=== PATIENT | female | born 1975 | race Caucasian/White ===

== ENCOUNTER 2017-04-25 13:13 | Emergency (ER) | payer OTHER ==
[~2017-04-25] VITALS: Ht 160 cm; Wt 90.5 kg
[2017-04-25 13:15] VITALS: BP 129/98; PULSE 85; RESP 14; TEMP 99.3; O2SAT 100
[2017-04-25] MEDS ORDERED: AMBI10TA PO (13:40)
[2017-04-25] MEDS ORDERED: MORP1TAB25 PO (13:40)
[2017-04-25] MEDS ORDERED: GABA400C5 PO (13:40)
[2017-04-25] MEDS ORDERED: PERC10TA27 PO (13:40)
[2017-04-25] MEDS ORDERED: METH500T3 PO (13:40)
[2017-04-25] MEDS ORDERED: CARI1CAP5 PO (13:40)
[2017-04-25] MEDS ORDERED: BUSP15TA PO (13:41)
[2017-04-25 14:20] LABS: AUTOMATED NEUTROPHIL # 3.7 TH/MM3 (1.8-7.7); BASOPHIL # 0.1 TH/MM3 (0-0.2); BASOPHIL % 1.1 % (0.0-2.0); EOSINOPHIL % 0.3 % (0.0-4.0); LYMPH % 20.1 % (9.0-44.0); MEAN CELL VOLUME 87.5 FL (80.0-100.0); MEAN CORPUSCULAR HEMOGLOBIN 29.3 PG (27.0-34.0); MEAN CORPUSCULAR HGB CONC 33.4 % (32.0-36.0); MEAN PLATELET VOLUME 9.2 FL (7.0-11.0); MONO % 5.8 % (0.0-8.0); MONOCYTE # 0.3 TH/MM3 (0-0.9); NEUT % 72.7 % (16.0-70.0); PLATELET COUNT 230 TH/MM3 (150-450); RED BLOOD COUNT 4.45 MIL/MM3 (4.00-5.30); WHITE BLOOD COUNT 5.1 TH/MM3 (4.0-11.0)
[2017-04-25 14:59] LABS: ALKALINE PHOSPHATASE 53 U/L (45-117); TOTAL BILIRUBIN ADULT 0.4 MG/DL (0.2-1.0); TOTAL PROTEIN 8.5 GM/DL (6.4-8.2)
[2017-04-25 15:00] LABS: ALT (GPT) 22 U/L (10-53); AST (GOT) 18 U/L (15-37); BICARBONATE 21.6 MEQ/L (21.0-32.0); BLOOD UREA NITROGEN 9 MG/DL (7-18); CALCIUM 8.8 MG/DL (8.5-10.1); CHLORIDE 107 MEQ/L (98-107); CREATININE 0.87 MG/DL (0.50-1.00); GLOMERULAR FILTRATION RATE 71 ML/MIN (>89); GLUCOSE,RANDOM 86 MG/DL (74-106); SODIUM (NA) 135 MEQ/L (136-145)
[2017-04-25] MEDS ORDERED: ONDANSETRON ODT 4 MG TAB PO ONE (15:00)
[2017-04-25] MEDS ORDERED: DICYCLOMINE HCL 20 MG/2 ML VIAL IM ONE (15:00)
--- NOTE | 2017-04-25 16:11 | PD ---
HPI Chief Complaint: Psychiatric Symptoms Time Seen by Provider: 13:31 Travel History International Travel<30 days: No Contact w/Intl Traveler<30days: No Traveled to known affect area: No History of Present Illness HPI This is a 42-year-old female who presents to the emergency department with increasing depression. She has a long history of chronic pain as well as depression and anxiety and she says over the past 24 hours she's been feeling more hopeless, helpless, and had some thoughts of overdosing on pills last evening, constant, severe, worsened by the of her father this year. She says she's been trying to titrate down on her opiates which is putting her into withdrawals and exacerbating her psychiatric issues. She went to see her primary care physician who was worried about her and recommended that she be seen in the emergency department. She says she's never tried to kill herself in the past. PFSH Past Medical History Autoimmune Disease: Yes Bipolar Disorder: Yes Anxiety: Yes Depression: Yes Musculoskeletal: Yes Psychiatric: Yes Tetanus Vaccination: < 5 Years ?: Not Past Surgical History Surgical History: No Previous Surgery Social History Alcohol Use: No Tobacco Use: Yes (vapor) Substance Use: No Allergies-Medications (Allergen,Severity, Reaction): Coded Allergies: No Known Allergies (Unverified , 04/25/17) Reported Meds & Prescriptions Reported Meds & Active Scripts Active Reported Buspirone (Buspirone HCl) 15 Mg Tab 15 Mg PO TID Vraylar Pack (Cariprazine Pack) 7 Day Pack 1 Cap PO DAILY Take 1.5 mg capsule on day 1; then 3 mg capsule on days 2-7. Ambien (Zolpidem Tartrate) 10 Mg Tab 10 Mg PO HS PRN Gabapentin 400 Mg Cap 400 Cap PO TID Methocarbamol 500 Mg Tab 500 Mg PO TID Percocet (Oxycodone-Acetaminophen) 10-325 mg Tab 1 Tab PO Q6H PRN Morphine ER (Morphine Sulfate) 30 Mg Tab 30 Mg PO BID Review of Systems Except as stated in HPI: all other systems reviewed are Neg Physical Exam Narrative GENERAL:Well appearing, no acute distress SKIN: Focused skin assessment warm and dry. HEAD: Atraumatic. Normocephalic. EYES: Pupils equal and round. No injection or drainage. ENT: Moist mucous membranes NECK: Trachea midline. CARDIOVASCULAR: Regular rate and rhythm. No murmur appreciated. RESPIRATORY: Clear to auscultation. Breath sounds equal bilaterally. GASTROINTESTINAL: Abdomen soft, non-tender, nondistended. MUSCULOSKELETAL: No obvious deformities. NEUROLOGICAL: Awake and alert. No obvious cranial nerve deficits. Moving all extremities. PSYCHIATRIC: Appropriate mood and affect; insight and judgment normal. Data Data Last Documented VS Vital Signs Date Time Temp Pulse Resp B/P (MAP) Pulse Ox O2 Delivery O2 Flow Rate FiO2 04/25/17 13:15 99.3 85 14 129/98 (108) 100 Orders Orders Complete Blood Count With Diff (04/25/17 13:44) Comprehensive Metabolic Panel (04/25/17 13:44) Thyroid Stimulating Hormone (04/25/17 13:44) Psych Screen (04/25/17 13:44) Drug Screen, Random Urine (04/25/17 13:44) Ondansetron Odt (Zofran Odt) (04/25/17 15:00) Dicyclomine Inj (Bentyl Inj) (04/25/17 15:00) Labs Laboratory Tests Test 04/25/17 13:44 04/25/17 14:01 04/25/17 14:13 White Blood Count 5.1 TH/MM3 Red Blood Count 4.45 MIL/MM3 Hemoglobin 13.0 GM/DL Hematocrit 39.0 % Mean Corpuscular Volume 87.5 FL Mean Corpuscular Hemoglobin 29.3 PG Mean Corpuscular Hemoglobin Concent 33.4 % Red Cell Distribution Width 14.0 % Platelet Count 230 TH/MM3 Mean Platelet Volume 9.2 FL Neutrophils (%) (Auto) 72.7 % Lymphocytes (%) (Auto) 20.1 % Monocytes (%) (Auto) 5.8 % Eosinophils (%) (Auto) 0.3 % Basophils (%) (Auto) 1.1 % Neutrophils # (Auto) 3.7 TH/MM3 Lymphocytes # (Auto) 1.0 TH/MM3 Monocytes # (Auto) 0.3 TH/MM3 Eosinophils # (Auto) 0.0 TH/MM3 Basophils # (Auto) 0.1 TH/MM3 CBC Comment DIFF FINAL Differential Comment Blood Urea Nitrogen 9 MG/DL Creatinine 0.87 MG/DL Random Glucose 86 MG/DL Total Protein 8.5 GM/DL Albumin 4.0 GM/DL Calcium Level 8.8 MG/DL Alkaline Phosphatase 53 U/L Aspartate Amino Transf (AST/SGOT) 18 U/L Alanine Aminotransferase (ALT/SGPT) 22 U/L Total Bilirubin 0.4 MG/DL Sodium Level 135 MEQ/L Potassium Level 4.0 MEQ/L Chloride Level 107 MEQ/L Carbon Dioxide Level 21.6 MEQ/L Anion Gap 6 MEQ/L Estimat Glomerular Filtration Rate 71 ML/MIN Thyroid Stimulating Hormone 3rd Gen 0.201 uIU/ML Urine Opiates Screen POS Urine Barbiturates Screen NEG Urine Amphetamines Screen NEG Urine Benzodiazepines Screen NEG Urine Cocaine Screen NEG Urine Cannabinoids Screen NEG MDM Medical Decision Making Medical Screen Exam Complete: Yes Emergency Medical Condition: Yes Interpretation(s) Afebrile, normotensive No leukocytosis tsh mildly low urine drug screen positive for opiates Differential Diagnosis Depression, anxiety, substance intoxication, opiate withdrawal Narrative Course This is a 42-year-old female who presents to the emergency department with depression, suicidal ideation and opiate withdrawal. Labs were obtained which were reassuring. She was given Zofran and Bentyl for her opiate withdrawal symptoms. She is quite tearful and depressed on exam. I think she requires voluntary psychiatric evaluation. Mitzi Aguero MD Apr 25, 2017 16:11
[2017-04-25 18:49] VITALS: BP 134/83; PULSE 80; RESP 18; O2SAT 99
--- NOTE | 2017-04-25 18:58 | PD ---
History of Present Illness Chief Complaint: Psychiatric Symptoms Time Seen by Provider: 18:00 Travel History International Travel<30 Days: No Contact w/Intl Traveler<30days: No Known affected area: No Legal Status Legal Status: Voluntary History of Present Illness: History of Present Illness HPI This is a 42-year-old female with a self-reported history of bipolar disorder who presents to the emergency department on a voluntary basis for psychiatric evaluation at the recommendation of her primary care physician. She reports a long history of chronic pain as well as depression and anxiety. She is not currently in psychiatric treatment and reports that the last time that she took psychiatric meds was back in March. At that time she was prescribed Latuda but she felt the medication was not helping so therefore she did not go back to her provider. She reports that she instead of returning to her psychiatric provider for evaluation of medication she began to over use her prescribed opiate medication in order to deal with her nurse symptoms of depression. Over the last 2 weeks she has taken her monthly allotment of pain medication. She did not contact her prescriber but felt that she would try and get another physician to prescribe her pain medication. She reports that she was feeling hopeless, helpless and had thoughts of overdosing on pills last evening. The patient's comes to the hospital and is requesting detox as well as treatment for her substance abuse. She also reports that she has been feeling more depressed and contact of having stopped her medication.. Electronic medical record is reviewed. No previous contact with [facility]. Current toxicology is positive for opiates. Seen with Dr. Nath. The patient is alert, oriented, calm, cooperative female who is dressed in hospital gown with appropriate hygiene and grooming. Her speech is clear, logical, goal-directed, of normal tone. There is no indication of any psychosis, no zakia, or hypomania. The patient reports feeling anxious and depressed as well as worried over possible withdrawal symptoms. No active suicidal or homicidal ideation, intent or plan. She is future oriented and states that her goal is "getting healthy". She reports she sleeping 2-3 hours per night interrupted but that has been happening for 6 months. Appetite is fair, low level of energy. Telephone call to the patient's stepmother, Merlyn Stern who is her support person at [phone]. Her stepmother is concerned over her continued use of the opiate medication as well as being concerned over her mental health issues. However she does not verbalize any consent regarding the patient's safety. They keep the medications under lock. She would like for the patient to receive substance abuse treatment and is agreeable to taking her to [facility] where she can receive both. She will be provided with the resource packet. She thanks me for the call. [facility] Past Medical History Autoimmune Disease: Yes Bipolar Disorder: Yes Anxiety: Yes Depression: Yes Musculoskeletal: Yes Psychiatric: Yes Tetanus Vaccination: < 5 Years ?: Not Past Surgical History Surgical History: No Previous Surgery Psychiatric History Psychiatric History Hx Psychiatric Treatment: No history of inpatient treatment. Has received outpatient treatment at [facility]. No previous history of suicidal attempts History of Inpatient Treatment: No Guns or firearms in home: No Social History Single, female who lives with her father and step mother. 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 Never children. Hx Alcohol Use: No Hx Tobacco Use: Yes (vapor) Hx Substance Use: Yes Substance Use Type: Alcohol Hx of Substance Use Treatment: Yes (reports that she had a problem with alcohol 10 years ago and was Miner acted at that time. She has maintained sobriety.) Family Psychiatric History Mother with substance abuse issues and history of suicidal attempts. Allergies-Medications (Allergen,Severity, Reaction): Coded Allergies: No Known Allergies (Unverified , 04/25/17) Reported Meds & Prescriptions Reported Meds & Active Scripts Active Reported Buspirone (Buspirone HCl) 15 Mg Tab 15 Mg PO TID Vraylar Pack (Cariprazine Pack) 7 Day Pack 1 Cap PO DAILY Take 1.5 mg capsule on day 1; then 3 mg capsule on days 2-7. Ambien (Zolpidem Tartrate) 10 Mg Tab 10 Mg PO HS PRN Gabapentin 400 Mg Cap 400 Cap PO TID Methocarbamol 500 Mg Tab 500 Mg PO TID Percocet (Oxycodone-Acetaminophen) 10-325 mg Tab 1 Tab PO Q6H PRN Morphine ER (Morphine Sulfate) 30 Mg Tab 30 Mg PO BID Review of Systems Musculoskeletal: COMPLAINS OF: Joint pain, Back pain Psychiatric: COMPLAINS OF: Anxiety, Depression Mental Status Examination Appearance: Appropriate Consciousness: Alert Orientation: x4 Motor Activity: Normal gait Speech: Unremarkable Language: Adequate Fund of Knowledge: Adequate Attention and Concentration: Adequate Memory: Unremarkable Mood: Appropriate Affect: Appropriate Thought Process & Associations: Intact, Logical, Goal directed Thought Content: Appropriate Hallucination Type: None Delusion Type: None Suicidal Ideation: No Suicidal Plan: No Suicidal Intention: No Homicidal Ideation: No Homicidal Plan: No Homicidal Intention: No Insight: Fair Judgment: Adequate [facility] Medical Decision Making Medical Record Reviewed: Yes Assessment/Plan 42-year-old female with history of bipolar disorder, opiate dependence who presents to the ED on a voluntary basis requesting a psychiatric evaluation. She reports that she has finished her monthly supply of opiates in 2 weeks. She reports that last night she felt hopeless helpless and had some suicidal thoughts. She did not make any attempt at harming herself. She is requesting detoxification from opiates as well as assistance with her substance use. She is future oriented and states that she wants to get healthier. She has adequate protective factors and states that she has attempted to that reminds her of her father that helps her when she is feeling depressed. She has supportive family members that are willing to help her in beginning her sobriety and her recovery. She agrees to go to [facility] and her family will take her there. At this time the patient does not meet criteria for Miner act. She is provided some clonidine to help her with some of the withdrawal. Patient is psychiatrically clear for discharge from the ED Orders Orders Complete Blood Count With Diff (04/25/17 13:44) Comprehensive Metabolic Panel (04/25/17 13:44) Thyroid Stimulating Hormone (04/25/17 13:44) Psych Screen (04/25/17 13:44) Drug Screen, Random Urine (04/25/17 13:44) Ondansetron Odt (Zofran Odt) (04/25/17 15:00) Dicyclomine Inj (Bentyl Inj) (04/25/17 15:00) Diet Regular Basic (04/25/17 Dinner) Results Vital Signs Date Time Temp Pulse Resp B/P (MAP) Pulse Ox O2 Delivery O2 Flow Rate FiO2 04/25/17 18:49 80 18 134/83 (100) 99 Room Air 04/25/17 13:15 99.3 85 14 129/98 (108) 100 Laboratory Tests Test 04/25/17 13:44 04/25/17 14:01 04/25/17 14:13 White Blood Count 5.1 Red Blood Count 4.45 Hemoglobin 13.0 Hematocrit 39.0 Mean Corpuscular Volume 87.5 Mean Corpuscular Hemoglobin 29.3 Mean Corpuscular Hemoglobin Concent 33.4 Red Cell Distribution Width 14.0 Platelet Count 230 Mean Platelet Volume 9.2 Neutrophils (%) (Auto) 72.7 Lymphocytes (%) (Auto) 20.1 Monocytes (%) (Auto) 5.8 Eosinophils (%) (Auto) 0.3 Basophils (%) (Auto) 1.1 Neutrophils # (Auto) 3.7 Lymphocytes # (Auto) 1.0 Monocytes # (Auto) 0.3 Eosinophils # (Auto) 0.0 Basophils # (Auto) 0.1 CBC Comment DIFF FINAL Differential Comment Blood Urea Nitrogen 9 Creatinine 0.87 Random Glucose 86 Total Protein 8.5 Albumin 4.0 Calcium Level 8.8 Alkaline Phosphatase 53 Aspartate Amino Transf (AST/SGOT) 18 Alanine Aminotransferase (ALT/SGPT) 22 Total Bilirubin 0.4 Sodium Level 135 Potassium Level 4.0 Chloride Level 107 Carbon Dioxide Level 21.6 Anion Gap 6 Estimat Glomerular Filtration Rate 71 Thyroid Stimulating Hormone 3rd Gen 0.201 Urine Opiates Screen POS Urine Barbiturates Screen NEG Urine Amphetamines Screen NEG Urine Benzodiazepines Screen NEG Urine Cocaine Screen NEG Urine Cannabinoids Screen NEG Diagnosis Primary Impression: Opiate abuse, continuous Psychiatrically Cleared: Yes Med/ Other Pt Specific Info: Prescription(s) given Prescriptions Clonidine (Clonidine) 0.1 Mg Tab 0.1 MG PO BID Y for ANXIETY for 5 Days, #10 TAB 0 Refills Prov: Sherry Irizarry Cabrera LOWE 04/25/17 Disposition: 01 DISCHARGE HOME Condition: Stable Sherry Irizarry MYNOR Apr 25, 2017 18:58
[2017-04-25] MEDS ORDERED: REMOVE OLD NICODERM (NICOTINE) PATCH T-DERMAL ONE (19:00)
[2017-04-25] MEDS ORDERED: NICOTINE 21 MG/24 HR PATCH T-DERMAL ONE (19:30)
[2017-04-25] MEDS ORDERED: CLON0.1T PO (19:50)
[2017-04-26] MEDS ORDERED: busPIRone HCL 5 MG TAB PO SCH (09:00)
[2017-04-26] MEDS ORDERED: GABAPENTIN 400 MG CAP PO SCH (09:00)
[2017-04-26] MEDS ORDERED: REMOVE OLD NICODERM (NICOTINE) PATCH T-DERMAL SCH (19:00)
== END 2017-04-25 21:40 | disposition home or self-care (01) ==
LOC: NEPD 13:13 → NEPJ 21:40
DX: F11.10 Opioid abuse, uncomplicated (principal); F31.9 Bipolar disorder, unspecified; F41.9 Anxiety disorder, unspecified; G89.29 Other chronic pain; Z72.0 Tobacco use
CPT/HCPCS: 80053; 80307; 84443; 85025; 96372; 99284; J0500